=== PATIENT | female | born 1950 | race Caucasian/White ===

== ENCOUNTER 2017-09-24 09:00 | Outpatient (CLI) | payer MEDICARE, MEDICAID ==
--- NOTE | 2017-09-24 12:01 | MRI ---
MRI OF THE LEFT KNEE WITHOUT CONTRAST: INDICATION: Fall with left knee pain. COMPARISON: Prior exam dated 06/05/05. FINDINGS: Motion artifact heavily limits image detail. There is a moderate to large size semimembranosis-media l gastrocnemius popliteal cyst The ACL, PCL, MCL, and LCLC are intact. There is mild osteoarthrosis that has mildly progressed from the prior exam. There is a full-thickness radial tear involving the posterior root of the medial meniscus with partia l medial extrusion. The lateral meniscus is intact. No acute fracture is evident. The extensor mechanism is intact. IMPRESSION: 1. Mild interval progression of the mid osteoarthrosis involving the left knee. 2. Radial tear involving the posterior root of the medial meniscus with partial medial extrusion. 3. Large Hummel's cyst. POS: [facility]
== END 2017-09-24 09:01 | disposition home or self-care (01) ==
LOC: MRI 09:00
PROVIDERS: ATTEND Orthopaedic Surgery
DX: M25.562 Pain in left knee (principal); M17.12 Unilateral primary osteoarthritis, left knee; M71.22 Synovial cyst of popliteal space [Baker], left knee; S83.242A Other tear of medial meniscus, current injury, left knee, initial encounter

== ENCOUNTER 2017-11-19 08:24 | Outpatient (CLI) | payer MEDICARE, MEDICAID ==
[2017-11-19 10:29] LABS: Hemoglobin 13.6 g/dL (12.0-16.0); Mean Corpuscular HGB CONC 33.1 g/dL (32.0-36.0); Mean Corpuscular Hemoglobin 31.9 pg (27.0-31.0); Mean Corpuscular Volume 96.4 fl (81.0-99.0); Mean Platelet Volume 8.2 fL (7.4-10.4); Platelet Count 258 thou/uL (130-400); RBC Distribution Width 12.3 % (11.5-14.5); Red Blood Cell (RBC) Count 4.27 mill/uL (4.20-5.40); White Blood Cell (WBC) Count 11.4 thou/uL (4.8-10.8)
== END 2017-11-19 08:25 | disposition home or self-care (01) ==
LOC: LABBT 08:24
PROVIDERS: ATTEND Orthopaedic Surgery
DX: Z01.818 Encounter for other preprocedural examination (principal); S83.242A Other tear of medial meniscus, current injury, left knee, initial encounter
CPT/HCPCS: 85027; 93005; 93010

== ENCOUNTER 2017-11-22 05:43 | Day surgery (SDC) | payer MEDICARE, MEDICAID ==
[2017-11-19 08:57] VITALS: BMI 23.0
[2017-11-22] MEDS ORDERED: Bupivacaine/Epinephrine 0.25% 30 ML VIAL ONE (06:32)
[2017-11-22] MEDS ORDERED: Lidocaine 1% (PF) 30 ML VIAL ONE (06:32)
[2017-11-22] MEDS ORDERED: Fentanyl 100 MCG/2 ML VIAL ONE (06:38)
[2017-11-22] MEDS ORDERED: CEFAZOLIN/Water 2 GM/20 ML SYRINGE ONE (06:53)
--- NOTE | 2017-11-22 08:46 | OP ---
DATE OF PROCEDURE: 11/22/2017 PREOPERATIVE DIAGNOSES: Left medial meniscus tear with early degenerative joint disease changes. POSTOPERATIVE DIAGNOSES: 1. Left radial tear, complex component, medial meniscus tear. 2. Grade I changes lateral femoral condyle. 3. Grade II changes medial femoral condyle. 4. Grade I changes patellofemoral joint. STAFF: Vitaliy Hamilton M.D. TOPOGRAPHICAL SURVEYOR: None. ANESTHESIA: Mónica. The patient received LMA with 30 mL of Marcaine 0.25% intraarticularly preproce dure and 30 mL 1% lidocaine subcu and intraarticular post-procedure. TOURNIQUET TIME: 16 minutes. ANTIBIOTICS: Ancef 2 grams. COMPLICATIONS: None. HISTORY OF PRESENT ILLNESS: Ms. Major is a 67-year-old female who presented to me with left knee alberto n for over 3 months. The patient intermittent preceding knee pain, previous knee arthroscopy. MRI s howed what appeared to be a radial tear with some extrusion. The patient did have some thinning of t he cartilage. I was concerned it might be some early degenerative changes. I discussed with the pat ient the risks and benefits of a left knee arthroscopy for debridement of the medial meniscus tear an d debridement and shaving as needed. I discussed risks and benefits of surgery to include pain, scar , bleeding, infection, damage to vital structures, decreased range of motion or strength, long-term r isk of arthritis, continued pain despite surgical intervention. The patient and family understood th e risks and benefits of procedure and elected to proceed. PROCEDURE IN DETAIL: Time out was performed designating the patient's left lower extremity as the op erative site based on site, consents and markings. After completion of timeout, the patient's tourni quet was brought up and left for a total 16 minutes. Anterolateral portal was placed, anteromedial p ortal was placed under visualization of spinal needle. We debrided the fat pad, looked at the patien t's ACL, which was intact, PCL which was intact, patellofemoral groove, there is some grooved areas w ithin the trochlear groove, but no full thickness cartilage defects noted. I looked in the gutters f or any loose bodies. I then moved laterally. There were some grade I changes noted on the lateral f emoral condyle and some frayed edges of the lateral meniscus, but no obvious tears that were noted wi th probing or palpation or loose fragments. We moved medially. The posteromedial aspect of medial m eniscus there was a radial tear that was noted with some kind of a complex component. The patient humphrey d grade II and maybe one spot of grade III changes on the medial femoral condyle which we debrided th e medial meniscus tear back to stable remnant. After I completed by debridement and shaving and was overall pleased with that procedure, we washed, closed with 3-0 nylon and placed Marcaine originally in the joint before the procedure and placed lidocaine in the joint afterwards with some subcutaneous lidocaine. We closed with the 3-0 nylon and then placed the patient in a soft tissue dressing. Raad rniquet was let down after 16 minutes. The patient will be weightbear as tolerated. I will see the patient back in my clinic in about 10-14 days, remove sutures. The patient's outlook is guarded.
[2017-11-22] MEDS ORDERED: PROPOFOL 200 MG/20 ML VIAL ONE (15:06)
[2017-11-22] MEDS ORDERED: Lidocaine 1% PF 5 ML VIAL ONE (15:06)
[2017-11-22] MEDS ORDERED: Ondansetron HCl/PF 4 MG/2 ML Vial ONE (15:06)
== END 2017-11-22 10:20 | disposition home or self-care (01) ==
LOC: SDC 05:43
PROVIDERS: ATTEND Orthopaedic Surgery
PROC: 0SBD4ZZ Excision of Left Knee Joint, Percutaneous Endoscopic Approach (ICD-10-PCS; principal; 2017-11-22)
DX: S83.232A Complex tear of medial meniscus, current injury, left knee, initial encounter (principal); M17.12 Unilateral primary osteoarthritis, left knee; M85.80 Other specified disorders of bone density and structure, unspecified site; K21.9 Gastro-esophageal reflux disease without esophagitis; E78.00 Pure hypercholesterolemia, unspecified; G89.29 Other chronic pain; Z79.82 Long term (current) use of aspirin; Z79.899 Other long term (current) drug therapy; Z88.0 Allergy status to penicillin; Z88.2 Allergy status to sulfonamides; Z88.8 Allergy status to other drugs, medicaments and biological substances; Z88.1 Allergy status to other antibiotic agents; Z91.041 Radiographic dye allergy status; W19.XXXA Unspecified fall, initial encounter
CPT/HCPCS: 29881; 97139; G8978; G8979; G8980; J2001; J2405; J2704; J3010

== ENCOUNTER 2017-12-20 19:00 | Emergency (ER) | payer MEDICARE, MEDICAID ==
--- NOTE | 2017-12-20 19:49 | RAD ---
TWO VIEW CHEST: 12/20/17 HISTORY: Cough. Lungs are clear. heart and mediastinum unremarkable. Vascular markings normal. IMPRESSION: No acute abnormality. POS: [facility]
[2017-12-20] MEDS ORDERED: Dexamethasone 10 MG/ML VIAL ONE (20:34)
== END 2017-12-20 21:03 | disposition home or self-care (01) ==
LOC: ERS 19:00
DX: R05 Cough (principal); E78.5 Hyperlipidemia, unspecified; J45.909 Unspecified asthma, uncomplicated; Z79.899 Other long term (current) drug therapy
CPT/HCPCS: 71046; 87081; 87430; J1100

== ENCOUNTER 2018-02-07 08:14 | Outpatient (CLI) | payer MEDICARE, MEDICAID | END 2018-02-07 08:15 | disposition home or self-care (01) | LOC: BICMAMMO 08:14 | PROVIDERS: ATTEND Nurse Practitioner Family | DX: M81.0 Age-related osteoporosis without current pathological fracture (principal) | CPT/HCPCS: 77080 ==

== ENCOUNTER 2018-04-23 10:48 | Outpatient (CLI) | payer MEDICARE, MEDICAID ==
--- NOTE | 2018-04-23 11:13 | RAD ---
PA AND LATERAL CHEST: History: Cough. FINDINGS: Comparison made with exam of 12-20-17. The heart size is normal. The lungs are well expanded without focal areas of consolidation, pneumotho races or pleural effusions. Bones are osteopenic. IMPRESSION: No radiographic evidence of acute cardiopulmonary process. POS: [facility]
== END 2018-04-23 10:49 | disposition home or self-care (01) ==
LOC: RAD-FRANK 10:48
PROVIDERS: ATTEND Nurse Practitioner Family
DX: R05 Cough (principal)
CPT/HCPCS: 71046

== ENCOUNTER 2019-02-03 08:04 | Outpatient (CLI) | payer MEDICARE, MEDICAID ==
--- NOTE | 2019-02-04 06:47 | MMO ---
Bilateral MAMMO Bilat Screen [facility]. CLINICAL HISTORY: Patient is 68 years old and is seen for screening. The patient has no family history of breast cancer. The patient has no personal history of cancer. VIEWS: The views performed were: bilateral craniocaudal with tomosynthesis and bilateral mediolateral oblique with tomosynthesis. FILMS COMPARED: The present examination has been compared to a prior imaging study performed at [facility] on 01/30/2018. MAMMOGRAM FINDINGS: There are scattered fibroglandular densities. Finding 1: There are stable benign appearing calcifications seen in both breasts. Finding 2: There is a stable mass seen in the right breast. There are no suspicious masses, suspicious calcifications, or new areas of architectural distortion. IMPRESSION: THERE IS NO MAMMOGRAPHIC EVIDENCE OF MALIGNANCY. A ROUTINE FOLLOW-UP MAMMOGRAM IN 1 YEAR IS RECOMMENDED. THE RESULTS OF THIS EXAM WERE SENT TO THE PATIENT. ACR BI-RADS Category 2 - Benign finding MAMMOGRAPHY NOTE: 1. A negative mammogram report should not delay a biopsy if a dominant of clinically suspicious mass is present. 2. Approximately 10% to 15% of breast cancers are not detected by mammography. 3. Adenosis and dense breasts may obscure an underlying neoplasm. Reported by: KRISTAL MORALES MD Electonically Signed: [id number]
== END 2019-02-03 08:05 | disposition home or self-care (01) ==
LOC: BICMAMMO 08:04
PROVIDERS: ATTEND Nurse Practitioner Family
DX: Z12.31 Encounter for screening mammogram for malignant neoplasm of breast (principal)
CPT/HCPCS: 77063; 77067

== ENCOUNTER 2019-03-05 09:06 | Outpatient (CLI) | payer MEDICARE, MEDICAID | END 2019-03-05 09:07 | disposition home or self-care (01) | LOC: CTENTCT 09:06 | PROVIDERS: ATTEND Student in an Organized Health Care Education/Training Program | DX: J32.9 Chronic sinusitis, unspecified (principal) | CPT/HCPCS: 70486 ==

== ENCOUNTER 2019-08-28 10:48 | Day surgery (SDC) | payer MEDICARE, MEDICAID ==
[2019-08-27 08:43] VITALS: BMI 25.7
[~2019-08-28 10:48] MED LIST: Dexamethasone 20 MG/5 ML VIAL ONE; Glycopyrrolate 0.2 MG/ML 5 ML SYRINGE ONE; Lidocaine 1% PF 5 ML VIAL ONE; Ondansetron PF 4 MG/2 ML Vial ONE; PROPOFOL 200 MG/20 ML VIAL ONE; Rocuronium Bromide 10 MG/ML (10ML VIAL) ONE
[2019-08-28] MEDS ORDERED: AFRIN NASAL MIST 15 ML BOT ONE (12:11)
[2019-08-28 12:36] LABS: Hemoglobin 13.2 g/dL (12.0-16.0)
[2019-08-28 13:00] LABS: Anion Gap 11 mmol/L (10-20); BUN (Urea Nitrogen) 9 mg/dL (9.8-20.1); Calc. Creatinine Clearance 82 mL/min (70-130); Calcium 9.9 mg/dL (7.8-10.44); Carbon Dioxide 25 mmol/L (23-31); Chloride 108 mmol/L (98-107); Estimated GFR-MDRD 86; Glucose 88 mg/dL (80-115); Potassium 3.4 mmol/L (3.5-5.1); Sodium 141 mmol/L (136-145)
[2019-08-28] MEDS ORDERED: Lidocaine 1% w/Epinephrine 1:100K 20 ML VIAL ONE (14:14)
[2019-08-28] MEDS ORDERED: Fentanyl 100 MCG/2 ML VIAL ONE ×2 (14:15→17:39)
[2019-08-28] MEDS ORDERED: EPINEPHrine 1 MG/ML AMP ONE (15:22)
[2019-08-28] MEDS ORDERED: Sodium Chloride 0.9% 0 ML ONE (15:22)
[2019-08-28] MEDS ORDERED: Phenylephrine 10 MG/ML VIAL ONE (17:39)
--- NOTE | 2019-08-29 11:20 | OP ---
DATE OF PROCEDURE: 08/28/2019 PREOPERATIVE DIAGNOSES: 1. Deviated septum. 2. Hypertrophic inferior turbinates. 3. Lateral valve collapse. 4. Previous nasal trauma. POSTOPERATIVE DIAGNOSES: 1. Deviated septum. 2. Hypertrophic inferior turbinates. 3. Lateral valve collapse. 4. Previous nasal trauma. PROCEDURES PERFORMED: 1. Septoplasty. 2. Bilateral nasal endoscopy with submucosal resection of inferior turbinates. 3. Bilateral nasal valve repair using Latera implants. DESCRIPTION OF PROCEDURE: SEPTOPLASTY: After local anesthesia was infiltrated into the submucoperichondrial plane, a standard Troy incision was made with a #15 blade down to the level of the septal cartilage. The caudal elevator was used to elevate the mucoperichondrium from the underlying cartilage. We then proceeded beyond the bony cartilaginous junction and elevated the bony periosteum as well. Great attention was paid to the spur to prevent rent formation in the septal flap. A transcartilaginous incision was then made, while preserving an adequate dorsal and caudal cartilaginous strut for tip support. The deformed cartilage was removed and disarticulated from the bony cartilaginous junction and maxillary crest. This was placed in saline and would later be crushed and returned to the mucoperichondrial envelope. We then elevated the contralateral periosteum from the bony cartilaginous region and removed the deformed portions of the bone and bony spurs. The cartilage was then crushed and placed back into the mucoperichondrial envelope and the mucosa was re-approximated with a quilting stitch composed of rapidly absorbent gut suture. The Troy incision was also closed with interrupted gut suture. At the completion of the case, Hardy splints were placed and suture secured to the caudal septum. BILATERAL NASAL ENDOSCOPY WITH SUBMUCOSAL RESECTION OF INFERIOR TURBINATES: After consent was obtained, the patient was identified, brought to the operating room, and placed on the operating room table in the supine position. Consent was obtained, notifying the patient of the possibility of additional infections, bleeding, brain injury, and eye/orbital injury. The patient was placed on the operating room table, and general endotracheal anesthesia and intravenous access was obtained. The patient was then positioned, prepped and draped for endoscopic sinus surgery. Nasal preparation included trimming nasal vestibular hairs and spraying in topical Afrin. We then placed Afrin topical solution on nasal pledgets and strategically located them intranasally. The perinasal mucosa was injected with 1% lidocaine with 1:100,000 epinephrine in the submucoperichondrial plane of the septum, lateral nasal wall, and anterior to the uncinate. The patient was then prepped and draped in a sterile fashion and positioned for endoscopic sinus surgery. With the 0-degree endoscope, the patient underwent systematic nasal endoscopy. There were no suspicious internasal masses or lesions identified. We then focused our attention to the osteomeatal complex region under the middle turbinate. The inferior turbinates were visualized with a 0 degree endoscope and outfractured with a Kayleen elevator. The inferior medial aspect was cauterized with the electrocautery. Hemostasis was obtained . After adequate airway was established, we turned our attention to the contralateral side and used a similar procedure. Again, a Kayleen elevator was used to outfracture inferior turbinates under endoscopic visualization. With a suction cautery, the free inferior medial aspect was cauterized under direct visualization along the length of the inferior turbinate. At this point, we then turned our attention to the contralateral side and proceeded with endoscopic sinus surgery. At the completion of the case, Rice keel splints were placed in the ethmoid cavities after the ethmoidectomy. There were no complications. The patient tolerated the procedure well and was discharged to the recovery room in stable condition prior to return to the preoperative day stay with ultimate discharge home. Prescriptions for pain medication and antibiotics were provided. The patient received intramuscular Depo-Medrol during the case. BILATERAL NASAL VALVE REPAIR USING LATERA IMPLANTS: Following sinus surgery and septoplasty, we proceeded lateral valve repair. The area was prepped and draped in a sterile fashion and the nasal dorsum was infiltrated with a small amount of 1% lidocaine with 1:100,000 epinephrine. We delineated the topical anatomy with the marking device and used the skin markers to illustrate, where the graft will be placed. We then everted the nasal ala and made in the intranasal approach with implantation needle and then skived along the nasal dorsum to the medial portion of the nasal bone. We then advanced the Latera graft from the loading chamber and delivered subcutaneously along the nasal bone to reinforce nasal alar cartilage and made sure that there was no extrusion of the graft. We turned attention to the contralateral side and used identical technique again with good results. Job ID: [id number]
== END 2019-08-28 17:39 | disposition home or self-care (01) ==
LOC: SDC 10:48
PROVIDERS: ATTEND Specialist
PROC: 09SM0ZZ Reposition Nasal Septum, Open Approach (ICD-10-PCS; principal; 2019-08-28)
PROC: 09BL0ZZ Excision of Nasal Turbinate, Open Approach (ICD-10-PCS; 2019-08-28)
PROC: 093K7ZZ Control Bleeding in Nasal Mucosa and Soft Tissue, Via Natural or Artificial Opening (ICD-10-PCS; 2019-08-28)
DX: J34.89 Other specified disorders of nose and nasal sinuses (principal); J32.9 Chronic sinusitis, unspecified; J34.2 Deviated nasal septum; J34.3 Hypertrophy of nasal turbinates; M85.80 Other specified disorders of bone density and structure, unspecified site; K21.9 Gastro-esophageal reflux disease without esophagitis; E78.00 Pure hypercholesterolemia, unspecified; Z79.899 Other long term (current) drug therapy; Z98.890 Other specified postprocedural states; Z88.0 Allergy status to penicillin; Z88.1 Allergy status to other antibiotic agents; Z90.89 Acquired absence of other organs; Z90.710 Acquired absence of both cervix and uterus; Z90.49 Acquired absence of other specified parts of digestive tract
CPT/HCPCS: 80048; 85014; 85018; 93005; 93010; J0171; J1100; J2001; J2370; J2405; J2704; J3010

== ENCOUNTER 2020-03-02 09:23 | Outpatient (CLI) | payer MEDICARE, MEDICAID ==
--- NOTE | 2020-03-02 10:13 | MMO ---
Bilateral MAMMO Bilat Screen [facility]. CLINICAL HISTORY: Patient is 69 years old and is seen for screening. The patient has no family history of breast cancer. The patient has no personal history of cancer. The patient has a history of right Stereotatic Biopsy in 2010 - benign. VIEWS: The views performed were: bilateral craniocaudal with tomosynthesis and bilateral mediolateral oblique with tomosynthesis. FILMS COMPARED: The present examination has been compared to prior imaging studies performed at [facility] on 01/30/2018 and 02/03/2019, and at [facility] on 01/19/2016 and 01/29/2017. This study has been interpreted with the assistance of computer-aided detection. MAMMOGRAM FINDINGS: There are scattered fibroglandular densities. Finding 1: There are stable benign appearing calcifications seen in both breasts. Finding 2: There is a stable mass with circumscribed margins seen in the right breast. Finding 3: There is a stable biopsy clip seen in the right breast. There are no suspicious masses, suspicious calcifications, or new areas of architectural distortion. IMPRESSION: THERE IS NO MAMMOGRAPHIC EVIDENCE OF MALIGNANCY. A ROUTINE FOLLOW-UP MAMMOGRAM IN 1 YEAR IS RECOMMENDED. THE RESULTS OF THIS EXAM WERE SENT TO THE PATIENT. ACR BI-RADS Category 2 - Benign finding MAMMOGRAPHY NOTE: 1. A negative mammogram report should not delay a biopsy if a dominant of clinically suspicious mass is present. 2. Approximately 10% to 15% of breast cancers are not detected by mammography. 3. Adenosis and dense breasts may obscure an underlying neoplasm. Reported by: DANIELLE PERAZA MD Electonically Signed: [id number]
== END 2020-03-02 09:24 | disposition home or self-care (01) ==
LOC: BICMAMMO 09:23
PROVIDERS: ATTEND Nurse Practitioner Family
DX: Z12.31 Encounter for screening mammogram for malignant neoplasm of breast (principal); Z91.89 Other specified personal risk factors, not elsewhere classified
CPT/HCPCS: 77063; 77067

== ENCOUNTER 2021-03-28 08:32 | Outpatient (CLI) | payer MEDICARE, MEDICAID | END 2021-03-28 08:33 | disposition home or self-care (01) | LOC: BICMAMMO 08:32 | PROVIDERS: ATTEND Nurse Practitioner Family | DX: Z12.31 Encounter for screening mammogram for malignant neoplasm of breast (principal); Z91.89 Other specified personal risk factors, not elsewhere classified | CPT/HCPCS: 77063; 77067 ==

== ENCOUNTER 2022-02-01 09:05 | Outpatient (CLI) | payer MEDICAID, MEDICARE, OTHER | END 2022-02-01 09:06 | disposition home or self-care (01) | LOC: CTENTCT 09:05 | PROVIDERS: ATTEND Specialist | DX: J32.9 Chronic sinusitis, unspecified (principal) | CPT/HCPCS: 70486 ==

== ENCOUNTER 2022-03-29 07:59 | Outpatient (CLI) | payer OTHER | END 2022-03-29 08:00 | disposition home or self-care (01) | LOC: BICMAMMO 07:59 | PROVIDERS: ATTEND Nurse Practitioner Family | DX: Z12.31 Encounter for screening mammogram for malignant neoplasm of breast (principal); Z13.820 Encounter for screening for osteoporosis; M81.0 Age-related osteoporosis without current pathological fracture; Z91.89 Other specified personal risk factors, not elsewhere classified | CPT/HCPCS: 77063; 77067; 77080 ==

== ENCOUNTER 2022-05-24 09:08 | Outpatient (CLI) | payer OTHER, MEDICAID | END 2022-05-24 09:09 | disposition home or self-care (01) | LOC: BICULT 09:08 | PROVIDERS: ATTEND Nurse Practitioner Family | DX: E06.9 Thyroiditis, unspecified (principal); E04.1 Nontoxic single thyroid nodule | CPT/HCPCS: 76536 ==

== ENCOUNTER 2023-07-18 08:25 | Outpatient (CLI) | payer OTHER, MEDICAID | END 2023-07-18 08:26 | disposition home or self-care (01) | LOC: RAD 08:25 | PROVIDERS: ATTEND Otolaryngology | DX: R13.10 Dysphagia, unspecified (principal); K21.9 Gastro-esophageal reflux disease without esophagitis | CPT/HCPCS: 74230 ==

== ENCOUNTER 2023-07-26 09:29 | Outpatient (CLI) | payer OTHER, MEDICAID | END 2023-07-26 09:30 | disposition home or self-care (01) | LOC: BICCT 09:29 | PROVIDERS: ATTEND Otolaryngology | DX: J32.9 Chronic sinusitis, unspecified (principal); Z90.89 Acquired absence of other organs ==

== ENCOUNTER 2024-02-06 07:51 | Outpatient (CLI) | payer OTHER, MEDICAID | END 2024-02-06 07:52 | disposition home or self-care (01) | LOC: ULT 07:51 | PROVIDERS: ATTEND Physician Assistant Medical | DX: R74.8 Abnormal levels of other serum enzymes (principal); K86.2 Cyst of pancreas; Z90.49 Acquired absence of other specified parts of digestive tract | CPT/HCPCS: 76705 ==

== ENCOUNTER 2024-04-03 08:56 | Outpatient (CLI) | payer OTHER | END 2024-04-03 08:57 | disposition home or self-care (01) | LOC: BICMAMMO 08:56 | PROVIDERS: ATTEND Nurse Practitioner Family | DX: Z12.31 Encounter for screening mammogram for malignant neoplasm of breast (principal); Z91.89 Other specified personal risk factors, not elsewhere classified | CPT/HCPCS: 77063; 77067 ==

== ENCOUNTER 2024-05-26 08:29 | Outpatient (CLI) | payer OTHER, MEDICAID | END 2024-05-26 08:30 | disposition home or self-care (01) | LOC: ULT 08:29 | PROVIDERS: ATTEND Nurse Practitioner Family | DX: E04.2 Nontoxic multinodular goiter (principal); E06.9 Thyroiditis, unspecified; E21.1 Secondary hyperparathyroidism, not elsewhere classified | CPT/HCPCS: 76536 ==